=== PATIENT | male | born 1965 | race Caucasian/White ===

== ENCOUNTER 2020-12-21 10:56 | Outpatient (CLI) | payer OTHER | END 2020-12-21 10:57 | disposition critical access hospital (66) | LOC: EMS 10:56 | DX: S68.122A Partial traumatic metacarpophalangeal amputation of right middle finger, initial encounter (principal); W23.0XXA Caught, crushed, jammed, or pinched between moving objects, initial encounter; Y93.89 Activity, other specified; Y92.008 Other place in unspecified non-institutional (private) residence as the place of occurrence of the external cause | CPT/HCPCS: A0425; A0429 ==

== ENCOUNTER 2020-12-21 11:14 | Emergency (ER) | payer OTHER ==
[2020-12-21] MEDS ORDERED: BUFFERED LIDOCAINE 10 ML SYRINGE SUBQ STA (11:18)
[2020-12-21] MEDS ORDERED: BUPIVACAINE 0.5% PF 10 ML VIAL SUBQ STA (11:18)
--- OUTSIDE RECORDS SUMMARY | 2020-12-21 12:11 | EXTERNAL MEDICAL SUMMARY RPT | Continuity of Care Document ---
:1965 Demographics Phone Unavailable Preferred Language Unknown Marital Status Unknown Orthodoxy Affiliation Unknown Race Unknown Ethnic Group Unknown Author Organization [facility] Address [address] [place] [address] Phone Allergies Encounters Medications Problems Results
[2020-12-21] MEDS ORDERED: TETANUS/DIPHTHERIA/PERTUSSIS 0.5 ML SYRINGE IM ONE (13:17)
[2020-12-21] MEDS ORDERED: ceFAZolin 1 GM VIAL IM STA (13:17)
--- NOTE | 2020-12-21 13:19 | ED Physician Documentation ---
PD HPI UPPER EXT INJURY - Stated complaint Stated Complaint: FINGER INJURY - Chief complaint Chief Complaint: Ext Problem - History obtained from History obtained from: Patient, Family - History of Present Illness Location: Right, Finger (middle) Type of injury: Laceration, Crush Where injury occurred: Home Timing - onset: Today Timing - duration: Minutes Timing - details: Abrupt onset, Still present Improved by: Rest, Ice Worsened by: Moving Contributing factors: No: Anticoagulated, Prior ortho surgery Similar symptoms before: Has not had sx before Recently seen: Not recently seen - Additonal information Additional information: 54-year-old male was moving his trailer when he got his middle finger caught between a brick wall and the side of a trailer. This took off the tip of his finger and he comes to the emergency department by ambulance now with a fingertip on ice. He was able to control the bleeding with direct pressure. Review of Systems Constitutional: denies: Fever Eyes: denies: Decreased vision Ears: denies: Ear pain Nose: denies: Congestion Throat: denies: Sore throat Cardiac: denies: Chest pain / pressure Respiratory: denies: Dyspnea, Cough GI: denies: Nausea, Vomiting : denies: Dysuria PD PAST MEDICAL HISTORY - Past Medical History Past Medical History: Yes Cardiovascular: High cholesterol, CO Endocrine/Autoimmune: Type 2 diabetes Psych: Depression Other Past Medical History: Stent placement in 2009 - Past Surgical History Past Surgical History: No - Present Medications Home Medications: Ambulatory Orders Medication Instructions Recorded Confirmed Aspirin EC [Ecotrin] 81 mg PO DAILY 12/21/20 12/21/20 Carvedilol [Coreg] 25 mg PO DAILY 12/21/20 12/21/20 Clopidogrel [Plavix] 75 mg PO DAILY 12/21/20 12/21/20 Fluoxetine HCl [Prozac] 20 mg PO DAILY 12/21/20 12/21/20 HYDROcod/ACETAM 5/325 [Warren 5/325] 1 - 2 tablet PO Q6H PRN #14 tablet 12/21/20 Pravastatin [Pravachol] 40 mg PO DAILY 12/21/20 12/21/20 cephALEXin [Keflex] 500 mg PO Q6H #28 12/21/20 metFORMIN [Glucophage] 500 mg PO BIDWM 12/21/20 12/21/20 - Allergies Allergies/Adverse Reactions: Allergies Allergy/AdvReac Type Severity Reaction Status Date / Time Penicillins AdvReac Unknown Verified 12/21/20 11:32 - Social History Does the pt smoke?: No Smoking Status: Former smoker Does the pt drink ETOH?: No Does the pt have substance abuse?: No - Immunizations Immunizations are current?: Yes PD ED PE NORMAL - Vitals Vital signs reviewed: Yes (hypertensive ) - General General: Alert and oriented X 3, No acute distress, Well developed/nourished - HEENT HEENT: Atraumatic, PERRL, EOMI - Respiratory Respiratory: No respiratory distress - Derm Derm: Normal color, Warm and dry, No rash - Extremities Extremities: No deformity, Other (The right middle finger is missing the distal tuft. There is involvement of the distal end of the nail and the end of the bone is covered by soft tissue.) - Neuro Neuro: Alert and oriented X 3, fire eater 2-12 intact, No motor deficit, No sensory deficit, Normal speech Eye Opening: Spontaneous Verbal: Oriented - Psych Psych: Normal mood, Normal affect Results - Vitals Vitals: Vital Signs - 24 hr 12/21/20 11:27 Temperature 37.4 C Heart Rate 81 Respiratory 16 Rate Blood Pressure 155/63 H O2 Saturation 97 Oxygen O2 Source Room air Procedures - Laceration (location) Right middle finger Length in cm: 3 Wound type: Flap, Clean, Exposure of bone, Other (tip amputation with thick pad) Neurovascular status: Sensory intact, Motor intact, Vascular intact Anesthesia: OTH (digital block with 50/50 bupivicaine/lidocaine with excellent anesthesia) Wound preparation: Hibiclens, Irrigated copiously NS, Debrided moderately, Wound explored, To the base, Other (The fat of the fingertip pad is removed with sharp dissection for the skin graft.) Skin layer closure: Nylon, Interrupted, Size #-0 - enter number (5-0), Other (Multiple sutures were left long and a piece of Xeroform gauze was used as a pressure dressing with the long sutures retaining the Xeroform gauze.) Other: Patient tolerated well, No complications, Neurovascular intact, Dressing applied, Tetanus booster given, Other (Given 1 g of Ancef IM) PD MEDICAL DECISION MAKING - ED course Complexity details: considered differential, d/w patient, d/w family ED course: 54-year-old male with a fingertip amputation. We were able to salvage the skin from the fingertip and reattach it to the tip of the finger. We used a self- retaining dressing with Xeroform. The patient received a gram of Ancef IM and a tetanus booster. Modification of the bone was not necessary as there was sufficient tissue to cover it.I have asked the patient to leave the Xeroform gauze in place for at least 4 days and to follow-up with orthopedics in the coming week for wound check. Departure - Departure Disposition: Home, Self Care Clinical Impression: Traumatic amputation of fingertip Qualifiers: Encounter type: initial encounter Qualified Code(s): S68.119A - Complete traumatic metacarpophalangeal amputation of unspecified finger, initial encounter Condition: Stable Instructions: ED Laceration Hand Follow-Up: [facility] [Provider Group] Prescriptions: cephALEXin [Keflex] 500 mg PO Q6H #28 HYDROcod/ACETAM 5/325 [Warren 5/325] 1 - 2 tablet PO Q6H PRN #14 tablet PRN Reason: Pain Comments: Today we have attempted to graft the tip of your finger back onto the tip of the finger and there is a self-retaining dressing in place. Leave this in place at least 4 days and preferably until your follow-up with orthopedics. If you develop increasing pain drainage swelling redness return to the emergency department for follow-up.
[2020-12-21 13:53] VITALS: BP 122/58
== END 2020-12-21 13:58 | disposition home or self-care (01) ==
LOC: EDUNIT# → ED 11:14
DX: S68.622A Partial traumatic transphalangeal amputation of right middle finger, initial encounter (principal); W23.0XXA Caught, crushed, jammed, or pinched between moving objects, initial encounter; Y93.89 Activity, other specified; Y92.009 Unspecified place in unspecified non-institutional (private) residence as the place of occurrence of the external cause; Z23 Encounter for immunization; E11.9 Type 2 diabetes mellitus without complications; Z79.84 Long term (current) use of oral hypoglycemic drugs; Z95.5 Presence of coronary angioplasty implant and graft; Z79.02 Long term (current) use of antithrombotics/antiplatelets; Z79.82 Long term (current) use of aspirin; Z87.891 Personal history of nicotine dependence
CPT/HCPCS: 13132; 90471

== ENCOUNTER 2020-12-27 09:19 | Outpatient (CLI) | payer OTHER ==
--- NOTE | 2020-12-27 18:02 | XRAY Report ---
PROCEDURE: Finger(s) RT INDICATIONS: AMPUTATION R 3RD FINGER THROUGH DISTAL PHALANX TECHNIQUE: AP hand, 3 views of the right third finger(s) acquired. COMPARISON: None FINDINGS: Bones: Avulsion fractures involving the lateral margin of the tuft of the third distal phalange and t he head of the third middle phalange. Soft tissues: No suspicious soft tissue calcifications. IMPRESSION: Right third middle and distal phalange avulsion fractures. Reviewed by: Yadi Rico MD, PhD on 12/27/2020 6:00 PM PDT Approved by: Yadi Rico MD, PhD on 12/27/2020 6:00 PM PDT Station ID: [id number]
== END 2020-12-27 23:59 | disposition home or self-care (01) ==
LOC: DI.N 09:19
PROVIDERS: ATTEND Orthopaedic Surgery
DX: S62.632D Displaced fracture of distal phalanx of right middle finger, subsequent encounter for fracture with routine healing (principal); S62.622D Displaced fracture of middle phalanx of right middle finger, subsequent encounter for fracture with routine healing

== ENCOUNTER 2021-09-27 11:56 | Outpatient (CLI) | payer OTHER ==
[2021-09-27] MEDS ORDERED: PERFLUTREN LIPID MICROSPHERES 1.65 MG/1.5 ML VIAL IVP ONE (13:44)
== END 2021-09-27 11:57 | disposition home or self-care (01) ==
LOC: DI 11:56
PROVIDERS: ATTEND Physician Assistant
DX: R05.9 Cough, unspecified (principal); I51.7 Cardiomegaly
CPT/HCPCS: 93306; Q9957

== ENCOUNTER 2021-11-28 09:55 | Outpatient (CLI) | payer OTHER ==
--- NOTE | 2021-11-28 10:53 | CARDIAC PROCEDURE NOTE ---
Stress Test Report Service Date: 11/28/21 Service Time: 10:00 Ordering Provider: Manuel Jacques PA-C Indication for Test: Assess for inducible ischemia in patient with prior NE, history of ischemic cardiomyopathy. Significant Medical History: Chaitanya has a known history of ischemic cardiomyopathy, after acute NE involving the LAD in 2009. He reports having onset of a heartburn feeling initially, that progressed to severe substernal chest pain necessitating emergent catheterization with PCI and a period on an intra-aortic balloon pump. He participated in cardiac rehabilitation and stabilized at a reduced level of exertional tolerance, that has generally been stable over the past several years. He is referred for today's stress perfusion imaging study to assess a more recent concern for development of nocturnal cough and wheezing, considered possibly a manifestation of mildly decompensated heart failure. There was consideration of starting a diuretic but he does not believe that one has been added to his pre-existent therapy with losartan and carvedilol. We note that he continues on longstanding DAPT. He has been retired from the [employer] since just prior to his NE and he describes himself as an avid swimmer, though he has not had access to a pool since the beginning of the COVID pandemic. 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 He feels that his exertional tolerance is stable over the past 6 to 12 months. He does have very random and occasional left chest wall sharp pain that is unlike his prior ischemic pain. He is on longstanding CPAP treatment. He is scheduled to be evaluated by a new specimen preparation assistant tomorrow. A recent transthoracic echocardiogram (on 09/27/2021 here at [facility]) was notable for normal LV size, mild concentric LVH, apparently mild global LV hypokinesis with ejection fraction 40-45%; mild right ventricular enlargement with normal RV size. There was no significant TR jet to allow assessment of PA/RV systolic pressure. The IVC was not adequately visualized to estimate CVP. Cardiac Risk Factors: Known CAD, in setting of hyperlipidemia, type 2 diabetes and positive family history of CAD. He has a 25-30 pack year tobacco smoking history, quit at time of NE in 2009. Type of Stress Test: ETT with Myocardial Perfusion Imaging Procedure: -Exercise Treadmill Test- After signing informed consent, the patient underwent resting SPECT imaging and then performed treadmill exercise using a Chang protocol. The patient exercised for 5 minutes 23 seconds and achieved a peak heart rate of 158 (94 percent predicted maximum heart rate for age), and an estimated workload of 7.1 METS. Chaitanya reports his last Coreg dose was 36 hours prior to this study. The test was terminated due to fatigue and a precipitous increase in shortness of breath. Resting heart rate: 71 Peak heart rate: 158 Normal response to exercise. Resting BP: 140/77 Peak BP: 169/58 Note BP was flat during exercise (SBP 146) and increased moderately only in early-mid Recovery; thus abnormal BP response to exercise. Rhythm during exercise: Sinus rhythm throughout. Symptoms: Sudden marked increase in dyspnea but NO chest discomfort was described. EKG at rest showed normal sinus rhythm with impaired R-wave progression V2-V5, consistent with prior anterior infarct. EKG at peak stress showed no clear ST depression/ischemia by EKG criteria. In Recovery BP initially increased, then decreased to near resting level (155/70) at 5:00. Nuclear imaging performed at rest and with stress and will be reported separately. IHitesh MD, was present throughout this treadmill stress study and supervised it in its entirety. Summary: 1) Exercise tolerance markedly reduced for age and sex as evidenced by KIM of 41%. 2) Abnormal resting EKG. 3) Adequate level of exercise was achieved on this treadmill stress test. 4) Abnormal BP response to exercise. 5) No clear ischemic changes by EKG criteria were seen at peak stress. 6) Analysis of gated nuclear images reveals enlargement of left ventricular size with reduced LV ejection fraction of 41% and increased lung/cardiac uptake ratio; SPECT analysis reveals a large fixed anterior defect, extending into the septum and the entire apex. There is only a very small rim of reversibility/chip-infarct ischemia. See separate Radiologist report for more detail. CONCLUSIONS: 1) Chang protocol treadmill stress test abnormal based on clinical response (precipitous increase in dyspnea), flat BP during exercise and markedly reduced exercise time, though EKG not clearly appearing ischemic. 2) Analysis of gated images consistent with recent echo findings; SPECT analysis shows large prior infarct with minimal chip-scar ischemia.
--- NOTE | 2021-11-28 14:51 | Nuclear Medicine Report ---
PROCEDURE: Rest and exercise myocardial perfusion SPECT with gated imaging and ejection fraction INDICATIONS: Coronary artery disease with history of myocardial infarction. Evaluate for myocardial ischemia. RADIOPHARMACEUTICAL: 16.4 mCi Tc-99m Myoview IV at rest and 51.5 mCi Tc-99m Myoview IV at peak exerc ise. [id number] was performed. TECHNIQUE: Radiopharmaceutical was injected at peak stress test, and also at rest. SPECT images wer e obtained. SPECT myocardial perfusion images were displayed in short axis, horizontal long axis, an d vertical long axis views. Gated images were reviewed using Auto[employer] software. COMPARISON: None available. FINDINGS: Raw data: There is good myocardial labeling by radiotracer. No significant motion artifacts. Lung- to-heart ratio is 0.67 (normal is less than 0.46 for tetrafosmin tracer). Left ventricle function: Gated images demonstrate decreased left ventricle wall thickening in the an terior wall, septum and apex. There is diffuse hypokinesia of the left ventricle. No transient ische maximo dilation; TID is 0.95 (normal less than 1.30). The left ventricle resting end-diastolic volume i s 168 mL. Left ventricle stress ejection fraction is 41%; normal values are above 45%. Myocardial perfusion: There is large, severe, fixed perfusion defect in the anterior wall extending to the apex, and anterior septum, consistent with myocardial infarction. There is minimal reversibili ty in the infarcted territory.. IMPRESSION: Abnormal myocardial perfusion images. 1. There is large myocardial infarction involving the anterior wall, apex and anterior septum. 2. There is minimal chip-infarct ischemia. 3. Moderate periventricular enlargement. There is diffuse hypokinesia of the left ventricle. The left ventricular ejection fraction is mildly decreased at 41%. 4. Elevated LHR. This finding is independent predictor for adverse cardiac event. The result was discussed with Dr. Cruz. PQRS ATTESTATIONS: Measure 322 - Is this imaging test primarily performed on a low-risk surgery patient for preoperative evaluation within 30 days preceding their low-risk non-cardiac surgery? Low-risk surgery is defined as cardiac or myocardial infarction less than 1%, including (but not limited to) endoscopic pr ocedures, superficial procedures, cataract surgery, and excisional breast surgery: Answer: No Measure 323 - Is this imaging test performed primarily for the monitoring of an asymptomatic patient who had percutaneous coronary intervention on the visit date or within 2 years of the visit date? An swer: No Measure 324 - Is this imaging test performed primarily for the initial detection and risk assessment on an asymptomatic, low coronary heart disease patient? Low CHD risk definition = clinicians should consider the maximum number of available patient factors used to estimate risk based on Guffey (A TP III criteria), typically age, gender, diabetes, smoking status, and use of blood pressure medicati on, and integrate age appropriate estimates for missing elements, such as LDL or standard blood press ure. Answer: No Reviewed by: Anneliese Hyman MD on 11/28/2021 2:50 PM PDT Approved by: Anneliese Hyman MD on 11/28/2021 2:50 PM PDT Station ID: [id number]
== END 2021-11-28 09:56 | disposition home or self-care (01) ==
LOC: DI 09:55
PROVIDERS: ATTEND Physician Assistant
DX: I25.10 Atherosclerotic heart disease of native coronary artery without angina pectoris (principal); R94.31 Abnormal electrocardiogram [ECG] [EKG]; I25.5 Ischemic cardiomyopathy; R05.9 Cough, unspecified; I25.2 Old myocardial infarction; E78.5 Hyperlipidemia, unspecified; E11.9 Type 2 diabetes mellitus without complications; Z82.49 Family history of ischemic heart disease and other diseases of the circulatory system; Z87.891 Personal history of nicotine dependence
CPT/HCPCS: 78452; 93017; A9500